=== PATIENT | female | born 1945 | race Caucasian/White ===

== ENCOUNTER 2017-08-03 10:26 | Day surgery (SDC) | payer MEDICARE, SELFPAY ==
[2017-08-03 10:48] VITALS: BP 191/80; PULSE 104; RESP 20; TEMP 36.6; O2SAT 99; BMI 31.2
[2017-08-03 10:56] LABS: Bedside Glucose 167 mg/dL (70-110)
[2017-08-03] MEDS: Tetracaine 0.5% Ophthalmic Bottle 1 DRP OP (11:55)
[2017-08-03 12:25] VITALS: BP 150/66; BP 191/80; PULSE 91; RESP 16; TEMP 36.9; O2SAT 100
--- NOTE | 2017-08-03 12:26 | DCINST_ITS ---
Allergies/Adverse Reactions: Allergies adhesive tape Allergy (Verified 07/31/17 11:08) Rash enalaprilat [From Vasotec] Allergy (Verified 07/31/17 11:08) Anaphylaxis Medications to take at Discharge Hydrochlorothiazide [Hctz] 25 mg PO DAILY 07/31/17 Metformin HCl 1,000 mg PO BID 07/31/17 Cataract Instructions: -Take a pain reliever such as Tylenol, Aspirin or Ibuprofen if needed for eye aching or pain. If this is not enough relief for you pain, call your doctor (or the doctor regional refrigerated cdl truck driver), even at night. -You are scheduled for a follow-up appointment at [facility] the day after surgery. You should have someone drive you. -Transient pain and irritation are due to the incision that was made at the time of surgery and do not indicate any trouble. Our office numbers are . If there is no answer, or if it is after our normal business hours, call your surgeon. My home phone number is: Dr. Radha Varghese INSTRUCTIONS FOLLOWING TOPICAL ANESTHETIC CATARACT SURGERY Protect operated eye with glasses or metal shield at all times. Instill one drop of Polytrim (or other antibiotic drop), one drop of Prednisolone and one drop of Acular in the operated eye four times a day ( breakfast, lunch, dinner, and bedtime) until the doctor tells you to quit or decrease them. Wait 3-5 minutes between each drop. Please begin these immediately upon arriving at home. if your surgery is in t he afternoon, try to use the drops at least three more times the day of surgery and again the following morning before your appointment. INSTRUCTIONS FOLLOWING RETROBULBAR CATARACT SURGERY Keep the eye patch and metal shield on until you see your surgeon the day after surgery - these will be removed in the office that day. Do not drive while the patch is on your eye. You will be instructed about the use of drops for the operated eye at that visit. Primary Care Physician: Flakito Lucia MD [Primary Care Provider] -
--- NOTE | 2017-08-03 12:27 | PCM.OP.BLANK ---
Operative Report Date of Procedure: 08/03/17 Preoperative Diagnosis: Cataract Left Eye Postoperative Diagnosis: Same Procedure: Cataract Extraction via phacoemulsification with intraocular lens implant Left Eye Anesthesia: Mac/topical Complications: none Estimated Blood Loss: none Indications for procedure: This is a 72 year old female with history of worsening vision in the left eye secondary to cataract. After discussion of the risks, benefits, and alternatives procedure the patient agreed to proceed with cataract extraction of the left eye. Description of procedure: The patient was brought to the operative room where a time out was performed prior to the start of the procedure. Anesthesia team induced light sedation, and the eye was prepped and draped in the normal sterile fashion for eye surgery. A david blade knife was used to create a paracentesis incision. Preservative free lidocaine followed by viscoelastic was introduced into the anterior chamber. A keratome was used to create a clear corneal biplanar incision at the temporal limbus. A cystotome was used to begin the capsulorhexis, which was completed in a continuous curvilinear fashion using the capsulorhexis forceps. BSS on a eagle cannula was used to hydrate beneath the lens capsule until the lens was noted to be freely mobile in the capsular bag. Phacoemulsification was used to remove the lens in a divide and conquer technique. Irrigation and aspiration was used to remove the remaining cortical material. The capsular bag was inflated with provisc, and a tecnis PCBOO 22.0 diopter lens was placed in the capsular bag and adjusted using a nikkie hook. The remaining viscoelastic material was removed. The wounds were hydrated and noted to be watertight with the use of a wexcell sponge. The patient was taken to the recovery room in a stable condition with instructions to follow up in the clinic for the scheduled postoperative visit.
[2017-08-03 12:30] VITALS: BP 147/78; BP 191/80; PULSE 89; RESP 16; O2SAT 94
[2017-08-03 12:35] VITALS: BP 168/65; BP 191/80; PULSE 83; RESP 16; O2SAT 97
[2017-08-03 12:40] VITALS: BP 156/81; BP 191/80; PULSE 84; RESP 16; TEMP 36.8; O2SAT 94
[2017-08-03 13:00] VITALS: BP 191/80
== END 2017-08-03 13:14 | disposition home or self-care (01) ==
LOC: SDC 10:40 → AC 10:40
PROVIDERS: Family Provider Family Medicine; PCP Family Medicine; Visit Provider Ophthalmology
PROC: (CPT 66984; principal; 2017-08-03 11:45)
DX: H25.813 Combined forms of age-related cataract, bilateral (principal); E11.3293 Type 2 diabetes mellitus with mild nonproliferative diabetic retinopathy without macular edema, bilateral; I10 Essential (primary) hypertension; F41.9 Anxiety disorder, unspecified; E06.9 Thyroiditis, unspecified; Z86.2 Personal history of diseases of the blood and blood-forming organs and certain disorders involving the immune mechanism; Z87.891 Personal history of nicotine dependence; Z79.84 Long term (current) use of oral hypoglycemic drugs; Z79.899 Other long term (current) drug therapy
CPT/HCPCS: 66984; 82962

== ENCOUNTER 2017-08-31 11:00 | Day surgery (SDC) | payer MEDICARE, SELFPAY ==
[2017-08-31] VITALS (7 sets, daily range): BP systolic 143–171; BP diastolic 66–88; PULSE 83–90; RESP 16–18; TEMP 36.5–36.9; O2SAT 94–100; BMI 31.5
[2017-08-31 12:01] LABS: Bedside Glucose 164 mg/dL (70-110)
[2017-08-31] MEDS: Tetracaine 0.5% Ophthalmic Bottle 1 DRP (12:44)
--- NOTE | 2017-08-31 13:05 | PCM.DC.CATCL ---
Allergies/Adverse Reactions: Allergies adhesive tape Allergy (Verified 08/30/17 15:20) Rash enalaprilat [From Vasotec] Allergy (Verified 08/30/17 15:20) Anaphylaxis Medications to take at Discharge Hydrochlorothiazide [Hctz] 25 mg PO DAILY 07/31/17 Metformin HCl 1,000 mg PO BID 07/31/17 Cataract Instructions: -Take a pain reliever such as Tylenol, Aspirin or Ibuprofen if needed for eye aching or pain. If this is not enough relief for you pain, call your doctor (or the doctor internal combustion engine inspector), even at night. -You are scheduled for a follow-up appointment at [facility] the day after surgery. You should have someone drive you. -Transient pain and irritation are due to the incision that was made at the time of surgery and do not indicate any trouble. Our office numbers are . If there is no answer, or if it is after our normal business hours, call your surgeon. My home phone number is: Dr. Radha Varghese INSTRUCTIONS FOLLOWING TOPICAL ANESTHETIC CATARACT SURGERY Protect operated eye with glasses or metal shield at all times. Instill one drop of Polytrim (or other antibiotic drop), one drop of Prednisolone and one drop of Acular in the operated eye four times a day (breakfast, lunch, dinner, and bedtime) until the doctor tells you to quit or decrease them. Wait 3-5 minutes between each drop. Please begin these immediately upon arriving at home. if your surgery is in t he afternoon, try to use the drops at least three more times the day of surgery and again the following morning before your appointment. INSTRUCTIONS FOLLOWING RETROBULBAR CATARACT SURGERY Keep the eye patch and metal shield on until you see your surgeon the day after surgery - these will be removed in the office that day. Do not drive while the patch is on your eye. You will be instructed about the use of drops for the operated eye at that visit. Primary Care Physician: Flakito Lucia MD [Primary Care Provider] -
--- NOTE | 2017-08-31 13:05 | PCM.OP.BLANK ---
Operative Report Date of Procedure: 08/31/17 Preoperative Diagnosis: Cataract Right Eye Postoperative Diagnosis: Same Procedure: Cataract Extraction via phacoemulsification with intraocular lens implant Right Eye Anesthesia: Mac/topical Complications: none Estimated Blood Loss: none Indications for procedure: This is a 72 year old female with history of worsening vision in the right eye secondary to cataract. After discussion of the risks, benefits, and alternatives procedure the patient agreed to proceed with cataract extraction of the right eye. Description of procedure: The patient was brought to the operative room where a time out was performed prior to the start of the procedure. Anesthesia team induced light sedation, and the eye was prepped and draped in the normal sterile fashion for eye surgery. A david blade knife was used to create a paracentesis incision. Preservative free lidocaine followed by viscoelastic was introduced into the anterior chamber. A keratome was used to create a clear corneal biplanar incision at the temporal limbus. A cystotome was used to begin the capsulorhexis, which was completed in a continuous curvilinear fashion using the capsulorhexis forceps. BSS on a eagle cannula was used to hydrate beneath the lens capsule until the lens was noted to be freely mobile in the capsular bag. Phacoemulsification was used to remove the lens in a divide and conquer technique. Irrigation and aspiration was used to remove the remaining cortical material. The capsular bag was inflated with provisc, and a tecnis PCBOO 22.0 diopter lens was placed in the capsular bag and adjusted using a nikkie hook. The remaining viscoelastic material was removed. The wounds were hydrated and noted to be watertight with the use of a wexcell sponge. The patient was taken to the recovery room in a stable condition with instructions to follow up in the clinic for the scheduled postoperative visit.
== END 2017-08-31 13:47 | disposition home or self-care (01) ==
LOC: SDC 11:06 → AC 11:07
PROVIDERS: Family Provider Family Medicine; PCP Family Medicine; Visit Provider Ophthalmology
PROC: (CPT 66984; principal; 2017-08-31 12:20)
DX: H25.811 Combined forms of age-related cataract, right eye (principal); I10 Essential (primary) hypertension; E11.9 Type 2 diabetes mellitus without complications; F41.9 Anxiety disorder, unspecified; Z98.42 Cataract extraction status, left eye; Z87.891 Personal history of nicotine dependence; Z79.84 Long term (current) use of oral hypoglycemic drugs; Z79.899 Other long term (current) drug therapy
CPT/HCPCS: 66984; 82962

== ENCOUNTER → 2018-06-06 | Outpatient (CLI) | payer MEDICARE, SELFPAY ==
[2018-06-06 17:21] LABS: Absolute Lymphocyte Count 3.83 X10^3/ul (0.83-4.51); Absolute Neutrophil Count 4.2 X10^3/uL (2.0-7.7); Basophil# 0.01 X10^3/uL; Basophil% 0.1 % (0-1); Eosinophil# 0.08 X10^3/uL; Eosinophils% 0.9 % (0-5); Hematocrit 41.5 % (37-47); Hemoglobin 14.2 g/dl (12.0-15.0); Lymphocyte # 3.83 X10^3/ul (4.0); Lymphocyte % 44.1 % (19-41); Mean Corp Hgb Conc 34.2 g/gl (32-36); Mean Corpuscular Hgb 31.1 pg (27.0-32.0); Mean Corpuscular Volume 90.8 fL (81-99); Mean Platelet Vol. 11.6 fl (6.2-12.0); Monocyte# 0.61 X10^3/uL; Neutrophil # 4.15 X10^3/uL (2.7-7.7); Neutrophil % 47.8 % (47-70); Platelet Count 352 K/mm3 (150-450); RBC Distribution Width SD 42.8 fl (35.1-43.9); Red Blood Count 4.57 M/mm3 (4.2-5.4); White Blood Count 8.7 K/mm3 (4.4-11.0)
[2018-06-06 17:22] LABS: POSITIVE COUNT NO; POSITIVE DIFFERENTIAL NO; POSITIVE MORPHOLOGY NO
[2018-06-06 17:48] LABS: ALB/GLOB Ratio 1.1 RATIO (0.9-2.4); AST(SGOT) 20 U/L (15-37); Alanine Aminotransfer ALT/SGPT 37 U/L (13-56); Albumin, Serum 4.2 g/dL (3.2-5.0); Alkaline Phosphatase 54 U/L (45-117); Anion Gap 5 (5-15); BUN 15 mg/dL (7-18); BUN/Creat Ratio 29.1 RATIO (10-20); Calcium,Total 9.4 mg/dL (8.5-10.1); Chloride 101 mmol/L (98-107); Creatinine, Serum 0.52 mg/dL (0.55-1.02); EST Glomerular Filtration Rate 125 mL/min (>60); Est Glom Filt Rate - Afr Amer 151 mL/min (>60); Globulin 3.9 g/dL (2.2-4.2); Glucose 133 mg/dL (74-106); Potassium 3.8 mmol/L (3.5-5.1); Protein, Total 8.1 g/dL (6.4-8.2); Sodium Level 136 mmol/L (136-145); Thyroid Stim Hormone (TSH) 1.74 uIU/mL (0.358-3.74)
== END | disposition home or self-care (01) ==
LOC: BFHLAB 15:51
PROVIDERS: Family Provider Family Medicine; PCP Family Medicine; Visit Provider Family Medicine
DX: E11.9 Type 2 diabetes mellitus without complications (principal); I10 Essential (primary) hypertension; E78.5 Hyperlipidemia, unspecified
CPT/HCPCS: 36415; 80053; 84443; 85025

== ENCOUNTER → 2022-06-30 | Outpatient (CLI) | payer MEDICARE, SELFPAY ==
[2022-06-30 15:52] LABS: Absolute Lymphocyte Count 2.99 X10^3/uL (0.83-4.51); Absolute Neutrophil Count 4.9 X10^3/uL (2.0-7.7); Basophil# 0.02 X10^3/uL; Basophil% 0.2 % (0-1); Eosinophil# 0.13 X10^3/uL; Eosinophils% 1.5 % (0-5); Hematocrit 40.4 % (37-47); Hemoglobin 13.2 g/dL (12.0-15.0); Lymphocyte # 2.99 X10^3/ul (0.83-4.51); Lymphocyte % 35.1 % (19-41); Mean Corp Hgb Conc 32.7 g/dL (32-36); Mean Corpuscular Hgb 30.8 pg (27.0-32.0); Mean Corpuscular Volume 94.4 fL (81-99); Mean Platelet Vol. 11.9 fl (6.2-12.0); Monocyte# 0.47 X10^3/uL; Monocyte% 5.5 % (0-10); NRBC Flagged by Analyzer 0 % (0-5); Neutrophil # 4.87 X10^3/uL (2.7-7.7); Neutrophil % 57.3 % (47-70); Platelet Count 309 K/mm3 (150-450); RBC Distribution Width CV 13.2 % (11.6-14.6); RBC Distribution Width SD 45.8 fl (35.1-43.9); Red Blood Count 4.28 M/mm3 (4.2-5.4); White Blood Count 8.5 K/mm3 (4.4-11.0)
[2022-06-30 16:26] LABS: ALB/GLOB Ratio 0.9 RATIO (0.9-2.4); AST(SGOT) 41 U/L (15-37); Alanine Aminotransfer ALT/SGPT 54 U/L (13-56); Albumin, Serum 3.8 g/dL (3.2-5.0); Alkaline Phosphatase 53 U/L (45-117); Anion Gap 9 (5-15); BUN 20 mg/dL (7-18); BUN/Creat Ratio 30.4 RATIO (10-20); Calcium,Total 9.8 mg/dL (8.5-10.1); Chloride 103 mmol/L (98-107); Cholesterol 208 mg/dL (200); Creatinine, Serum 0.66 mg/dL (0.55-1.02); EST Glomerular Filtration Rate 93 mL/min (>60); Est Glom Filt Rate - Afr Amer 112 mL/min (>60); Globulin 4.4 g/dL (2.2-4.2); Glucose 167 mg/dL (74-106); High Density Lipoprotein 70 mg/dL; Protein, Total 8.2 g/dL (6.4-8.2); Sodium Level 137 mmol/L (136-145); Triglycerides 147 mg/dL; Very Low Density Lipoprotein 29 mg/dL (5-40)
[2022-06-30 16:37] LABS: Microalbumin,Random Urine 92.9 mg/L (NO RANGE EST.); Microalbumin:Creatinine Ratio 346.6 mg/g CRE (<30 mg/g CRE)
== END | disposition home or self-care (01) ==
LOC: BFHLAB 13:29
PROVIDERS: PCP Family Medicine; Referring Provider Family Medicine; Visit Provider Family Medicine
DX: Z00.00 Encounter for general adult medical examination without abnormal findings (principal); E11.9 Type 2 diabetes mellitus without complications; I10 Essential (primary) hypertension
CPT/HCPCS: 36415; 80053; 80061; 82043; 82570; 85025

== ENCOUNTER 2023-01-29 00:05 | Emergency (ER) | payer MEDICARE, SELFPAY ==
[2023-01-29 00:09] VITALS: BP 136/81; PULSE 114; RESP 17; TEMP 36.3; O2SAT 97; BMI 38.0
[2023-01-29 00:12] VITALS: BMI 38.0
--- NOTE | 2023-01-29 00:45 | EX.ED.DYSGE1 ---
HPI History of Present Illness Chief Complaint: Neuro S/Sx Informant: patient Narrative Narrative: 77-year-old female presenting to the emergency room with headache. Patient states that she has a lot of small things that normally I would not come in for but as I get older I figured I should be checked out. She states that 3 to 4 days ago she got a bad headache on her right parietal region. She also developed squiggly shapes in her left eye. She states that the headache has improved and now is more of a dull ache but the shapes continued. She went to drove herself here but her grandson had the car so he drove her. She states that earlier tonight she noticed that her blood pressure was going up. Her cheeks felt flushed. She felt tremulous and she had tingling that turned into numbness back to tingling and then resolution of the left thumb index and middle finger. [facility] Medical History Diabetes type 2, controlled Hypertension Home Medications hydrochlorothiazide 25 mg tablet 25 mg PO DAILY 07/31/17 [History Last Taken Unknown] metformin 1,000 mg tablet 1,000 mg PO BID 07/31/17 [History Last Taken Unknown] Allergy/AdvReac Type Severity Reaction Status Date / Time povidone-iodine Allergy Mild Swelling Verified 01/29/23 00:15 [From Betadine] adhesive tape Allergy Rash Verified 01/29/23 00:14 enalaprilat [From Vasotec] Allergy Anaphylaxis Verified 01/29/23 00:14 Social History Smoking Status: Former smoker ROS ROS ED Constitutional Constitutional ED: Denies chills, fever(s) or weight loss Eyes Eyes: Reports other Details: Visual disturbance left eye ; Denies change in vision or diplopia ENT ENT ED: Reports other Details: Flushed cheeks ; Denies ear pain, rhinorrhea or sore throat Cardiovascular Cardiovascular: Denies chest pain, orthopnea, palpitations or racing heartbeat Respiratory/Chest Respiratory/Chest: Denies cough, dyspnea or orthopnea Gastrointestinal Gastrointestinal: Denies abdominal pain, diarrhea, nausea or vomiting Genitourinary Genitourinary ED: Denies dysuria, hematuria or urinary frequency Musculoskeletal Musculoskeletal: Denies arthralgias or myalgias Integumentary Denies abscess or rash Neurologic Neurologic: Reports headache(s) and paresthesias; Denies weakness Psychiatric Psychiatric: Denies anxiety, depression, suicidal ideation or suicidal thoughts Endocrine Endocrinology: Denies polydipsia, polyphagia or polyuria Allergic/Immunologic Allergic/Immunologic ED: Denies mouth swelling, tongue swelling or urticaria EXAM Physical Exam Const Vital Signs: 01/29/23 00:09 01/29/23 02:53 Temperature 97.4 F L Temperature Source Temporal Pulse Rate 114 H 99 Respiratory Rate 17 12 Blood Pressure 136/81 H 131/96 H Blood Pressure Mean 99 107 Pulse Ox 97 95 Oxygen Delivery Method Room Air Positive well nourished and well developed General Appearance ED: well developed HEENT Reports normocephalic, head/scalp atraumatic and moist mucous membranes HEENT Narrative: Small subconjunctival hemorrhage bilateral eyes which the patient states is from my injections Eyes PERRL and EOMs intact bilaterally Neck no lymphadenopathy, supple and no JVD Resp normal respiratory effort and clear to auscultation bilaterally Cardio regular rate, regular rhythm and no murmurs GI normal to inspection, nondistended, normoactive bowel sounds and non-tender Palpation: soft Back/Spine no CVA tenderness and normal ROM Extremity normal to inspection General Extremety ED: Negative for edema General Extremity: Negative for edema Neuro oriented x3 and CN's II-XII intact bilaterally Sensorium / Orientation: alert Motor Exam: strength 5/5 throughout Psych mental status grossly normal Mood & Affect: anxious; Negative for depressed or tearful Skin no rashes or lesions noted and no wounds MDM MDM MDM Narrative Medical decision making narrative: I think that the headache and the visual disturbance is most likely migrainous. Recommended to give her a dose of Toradol and Decadron. Flushing of the cheeks the tremor elevated blood pressure most likely related to anxiety. The paresthesias in the first 3 fingers of the left hand sounds peripheral nerve in nature. CT of the brain demonstrates no hemorrhage or subacute infarct. White count 12.4 hemoglobin 12.2. Blood sugar 142. No sodium or potassium irregularity. Patient feels greatly relieved with her testing. Her EKG is a sinus tachycardia at a rate of 101. I believe the tachycardia to be anxiety driven. This point think the patient can be discharged home to follow-up with her doctors if not improving. Particularly the visual disturbance if she needs to see her eye doctor for continued symptoms would recommend that on Monday or Monday. History & Record Review Discussion w/independent historian: Patient Lab Data Attestation: I reviewed the patient's lab results. Labs: Laboratory Results - last 24 hr 01/29/23 01/29/23 00:19 00:27 WBC 12.4 H RBC 4.05 L Hgb 12.2 Hct 38.2 MCV 94.3 MCH 30.1 MCHC 31.9 L RDW Std Deviation 45.0 H RDW Coeff of Dottie 13.0 Plt Count 336 MPV 11.9 Immature Gran % (Auto) 0.300 Neut % (Auto) 66.2 Lymph % (Auto) 24.5 Wayne % (Auto) 7.7 Eos % (Auto) 0.9 Baso % (Auto) 0.4 Absolute Neuts (auto) 8.2 H Absolute Lymphs (auto) 3.04 Nucleated RBC % 0 Sodium 136 Potassium 4.3 Chloride 101 Carbon Dioxide 28.0 Anion Gap 7 BUN 38 H Creatinine 1.14 H Estim Creat Clear Calc 31.68 Est GFR (MDRD) Af Amer 60 Est GFR (MDRD) Non-Af 49 L BUN/Creatinine Ratio 33.3 H Glucose 142 H Calcium 9.7 POC Glucose 122 H Radiography Diagnostic Testing: Clinical Impression(s) from Imaging Studies Brain CT 01/29/23 00:49 IMPRESSION: Mild atrophy no visualized acute hemorrhage infarct or edema. Electronically Signed: Lisseth Laboy MD at 2:08 EST Reading Location ID and State: [facility] / [place] Tel , Service support , EKG Initial EKG: Attestation: I personally reviewed and interpreted this EKG as follows: Comments: Sinus tachycardia ventricular rate of 101. Discharge Plan Triage Chief Complaint: Neuro S/Sx ED Provider: Ac Esquivel Dx/Rx/DC Orders Clinical Impression: Paresthesia of hand, Migraine aura, persistent Instructions: ED, Migraine (Classical) Prescriptions: No Action metformin 1,000 MG tablet 1,000 mg PO BID hydrochlorothiazide 25 MG tablet 25 mg PO DAILY Primary Care Provider: Bing Pryor Referrals: Bing Pryor MD [Primary Care Provider] - Activity Restrictions/Additional Instructions: If visual disturbances persist please see your eye doctor early next week. As discussed you may notice an increase in your blood sugar over the next couple days due to the Decadron (steroid). You may continue to treat any residual headache with Motrin. Disposition Disposition: Home, Self Care Discharge Date/Time: 01/29/23 02:54
[2023-01-29 00:48] LABS: Bedside Glucose 122 mg/dL (74-106)
--- NOTE | 2023-01-29 00:49 | CT_ITS ---
STUDY: CT BRAIN WITHOUT CONTRAST REASON FOR EXAM: Female, 77 years old. Headache RADIATION DOSAGE (If Supplied By Facility): CTDIvol = ( 44.99 ) mGy, DLP = ( 779.24 ) mGycm TECHNIQUE: Transaxial CT imaging of the brain was performed without administration of intravenous contrast material. Individualized dose optimization techniques were used for this CT. COMPARISON: October 29, 2016 chest x-ray FINDINGS: Normal soft tissue structures. Normal calvarium. There is visualized calcification of the bilateral vertebral arteries. There is calcification of the bilateral cavernous carotid arteries. There is mild cerebral atrophy with widening of the extra-axial spaces and ventricular dilatation. Normal white matter tracts of the cerebral hemispheres. Normal basal ganglia and thalami. Normal brainstem. Normal cerebellum. There is no intracranial hemorrhage. There are no findings of an acute ischemic infarction. Normal visualized paranasal sinuses. CT/Brain/Head without Contrast IMPRESSION: Mild atrophy no visualized acute hemorrhage infarct or edema. Electronically Signed: Lisseth Laboy MD at 2:08 EST Reading Location ID and State: [facility] / [place] Tel , Service support ,
--- NOTE | 2023-01-29 00:49 | EKG12_ITS ---
Test Reason : DYSRHYTHMIA Blood Pressure : / mmHG Vent. Rate : 101 BPM Atrial Rate : 101 BPM P-R Int : 132 ms QRS Dur : 080 ms QT Int : 332 ms P-R-T Axes : 037 021 052 degrees QTc Int : 430 ms Sinus tachycardia Otherwise normal ECG Confirmed by SARAHI CHAMBERS, ABEL ([id number]), general expeditor GENNA UA ([id number]) on 01/30/2023 1:25:50 PM Referred By: Confirmed By:ABEL MCCLAIN MD
[2023-01-29 01:25] LABS: Absolute Lymphocyte Count 3.04 X10^3/uL (0.83-4.51); Absolute Neutrophil Count 8.2 X10^3/uL (2.0-7.7); Basophil# 0.05 X10^3/uL; Basophil% 0.4 % (0-1); Eosinophil# 0.11 X10^3/uL; Eosinophils% 0.9 % (0-5); Hematocrit 38.2 % (37-47); Hemoglobin 12.2 g/dL (12.0-15.0); Lymphocyte # 3.04 X10^3/ul (0.83-4.51); Lymphocyte % 24.5 % (19-41); Mean Corp Hgb Conc 31.9 g/dL (32-36); Mean Corpuscular Hgb 30.1 pg (27.0-32.0); Mean Corpuscular Volume 94.3 fL (81-99); Mean Platelet Vol. 11.9 fl (6.2-12.0); Monocyte# 0.95 X10^3/uL; Monocyte% 7.7 % (0-10); NRBC Flagged by Analyzer 0 % (0-5); Neutrophil # 8.22 X10^3/uL (2.7-7.7); Neutrophil % 66.2 % (47-70); Platelet Count 336 K/mm3 (150-450); Red Blood Count 4.05 M/mm3 (4.2-5.4); White Blood Count 12.4 K/mm3 (4.4-11.0)
[2023-01-29 01:36] LABS: Anion Gap 7 (5-15); BUN 38 mg/dL (7-18); BUN/Creat Ratio 33.3 RATIO (10-20); Calcium,Total 9.7 mg/dL (8.5-10.1); Chloride 101 mmol/L (98-107); Creatinine, Serum 1.14 mg/dL (0.55-1.02); EST Glomerular Filtration Rate 49 mL/min (>60); Est Glom Filt Rate - Afr Amer 60 mL/min (>60); Estimated Creatinine Clearance 31.68 ml/min; Glucose 142 mg/dL (74-106); Potassium 4.3 mmol/L (3.5-5.1); Sodium Level 136 mmol/L (136-145)
[2023-01-29] MEDS: Ketorolac 30 MG/ML Syringe IV (02:44)
[2023-01-29] MEDS: dexAMETHasone 10 MG/ML Vial IV (02:44)
[2023-01-29 02:53] VITALS: BP 131/96; PULSE 99; RESP 12; O2SAT 95
== END 2023-01-29 02:54 | disposition home or self-care (01) ==
PROVIDERS: Emergency Provider Emergency Medicine; PCP Family Medicine; Visit Provider Emergency Medicine
DX: R20.2 Paresthesia of skin (principal); E11.9 Type 2 diabetes mellitus without complications; G43.509 Persistent migraine aura without cerebral infarction, not intractable, without status migrainosus; Z87.891 Personal history of nicotine dependence
CPT/HCPCS: 70450; 80048; 82962; 85025; 93005; 96374; 96375; 99284; A4216

== ENCOUNTER → 2024-01-05 | Outpatient (CLI) | payer MEDICARE, SELFPAY ==
[2024-01-05 17:28] LABS: Absolute Neutrophil Count 4.5 X10^3/uL (2.0-7.7); Basophil# 0.02 X10^3/uL; Basophil% 0.3 % (0-1); Eosinophil# 0.17 X10^3/uL; Eosinophils% 2.2 % (0-5); Hematocrit 37.7 % (37-47); Hemoglobin 12.1 g/dL (12.0-15.0); Lymphocyte % 33.2 % (19-41); Mean Corp Hgb Conc 32.1 g/dL (32-36); Mean Corpuscular Hgb 30.3 pg (27.0-32.0); Mean Corpuscular Volume 94.5 fL (81-99); Monocyte# 0.55 X10^3/uL; NRBC Flagged by Analyzer 0 % (0-5); Neutrophil # 4.48 X10^3/uL (2.7-7.7); Platelet Count 297 K/mm3 (150-450); RBC Distribution Width CV 13.2 % (11.6-14.6); RBC Distribution Width SD 45.9 fl (35.1-43.9); Red Blood Count 3.99 M/mm3 (4.2-5.4); White Blood Count 7.8 K/mm3 (4.4-11.0)
[2024-01-05 17:48] LABS: ALB/GLOB Ratio 0.9 RATIO (0.9-2.4); AST(SGOT) 33 U/L (15-37); Alanine Aminotransfer ALT/SGPT 48 U/L (13-56); Albumin, Serum 3.7 g/dL (3.2-5.0); Alkaline Phosphatase 48 U/L (45-117); Anion Gap 7 (5-15); BUN 16 mg/dL (7-18); BUN/Creat Ratio 21.3 RATIO (10-20); Calcium,Total 9.7 mg/dL (8.5-10.1); Chloride 103 mmol/L (98-107); Cholesterol 197 mg/dL (200); Creatinine, Serum 0.75 mg/dL (0.55-1.02); EST Glomerular Filtration Rate 79 mL/min (>60); Est Glom Filt Rate - Afr Amer 96 mL/min (>60); Globulin 4.3 g/dL (2.2-4.2); Glucose 187 mg/dL (74-106); High Density Lipoprotein 75 mg/dL; Microalbumin:Creatinine Ratio 722.2 mg/g CRE (<30 mg/g CRE); Potassium 4.4 mmol/L (3.5-5.1); Sodium Level 136 mmol/L (136-145); Triglycerides 109 mg/dL; Very Low Density Lipoprotein 22 mg/dL (5-40)
== END | disposition home or self-care (01) ==
LOC: BFHLAB 14:25
PROVIDERS: PCP Family Medicine; Referring Provider Family Medicine; Visit Provider Family Medicine
DX: E11.9 Type 2 diabetes mellitus without complications (principal)
CPT/HCPCS: 36415; 80053; 80061; 82043; 82570; 85025

== ENCOUNTER → 2025-01-07 | Outpatient (CLI) | payer MEDICARE, SELFPAY ==
[2025-01-07 15:25] LABS: Hematocrit 43.8 % (37-47); Hemoglobin 14.2 g/dL (12.0-15.0); Immature Granulocytes Count 0.020 X10^3/uL (0.0-0.0); Mean Corp Hgb Conc 32.4 g/dL (32-36); Mean Corpuscular Volume 93.2 fL (81-99); Mean Platelet Vol. 11.8 fl (6.2-12.0); NRBC Flagged by Analyzer 0 % (0-5); Platelet Count 299 K/mm3 (150-450); RBC Distribution Width CV 13.2 % (11.6-14.6); RBC Distribution Width SD 45.7 fl (35.1-43.9); Red Blood Count 4.70 M/mm3 (4.2-5.4); White Blood Count 7.5 K/mm3 (4.4-11.0)
[2025-01-07 15:47] LABS: AST(SGOT) 31 U/L (<=31); Alanine Aminotransfer ALT/SGPT 27 U/L (<=34); Albumin, Serum 4.1 g/dL (3.4-4.8); Alkaline Phosphatase 57 U/L (35-104); Anion Gap 13 (5-15); BUN 22 mg/dL (4-19); BUN/Creat Ratio 31.6 RATIO (10-20); Calcium,Total 10.1 mg/dL (7.6-11.0); Carbon Dioxide 26.0 mmol/L (21.0-32.0); Chloride 100 mmol/L (98-108); Cholesterol 241 mg/dL (<=200); Globulin 3.7 g/dL (2.2-4.2); Glucose 132 mg/dL (70-99); Low Density Lipoprotein Calc. 143 mg/dL; Potassium 4.2 mmol/L (3.3-5.1); Triglycerides 141 mg/dL; Very Low Density Lipoprotein 28 mg/dL (5-40); cholesterol:hdl ratio screen 3.30
--- OUTSIDE RECORDS SUMMARY | 2025-01-07 16:56 | XMS RPT_ITS | CCD ---
Author Organization [facility] ion Partnership [facility] Care Team Providers Care Field Liability Generalist Name Role Phone Bing Pryor Referring Unavailable Bing Pryor Attending Unavailable Bing Pryor Primary Care Unavailable Allergies Allergy Classification Reported Allergen(s) Allergy Type Date of Onset Reaction(s) Facility (2 sources) Adhesive Tape; Translations: [adhesive tape] Allergy to substance 01-29-2023 Rash [facility] (1 source) Enalaprilat Drug Allergy 01-29-2023 Anaphylaxis [facility] (1 source) Povidone-Iodine Drug Allergy 01-29-2023 Swelling [facility] (1 source) Enalaprilat Drug Allergy 01-29-2023 [facility] Repository (1 source) Povidone-Iodine Drug Allergy 01-29-2023 [facility] Repository Medications Current Medications Medication Drug Class(es) Dates Sig (Normalized) Sig (Original) hydroCHLOROthiazide 25 mg oral tablet (1 source) Thiazide Diuretic Start: 8 take 25 mg by mouth once daily Hydrochlorothiazide Active 25 MG PO DAILY July 30, 2017 11:00pm metFORMIN hydrochloride 1000 mg oral tablet (1 source) Biguanide Start: 8 take 1000 mg by mouth twice daily Metformin Active 1000 MG PO TWICE A DAY July 30, 2017 11:00pm Problems Active Problems Problem Classification Problem Date Documented Da te Episodic/Chronic Diabetes mellitus without complication (1 source) Type 2 diabetes mellitus without complications; Translations: [Type 2 diabetes mellitus without complications] Onset: 02-01-2024 Chronic Headache; including migraine (1 source) Migraine with persistent visual aura; Translations: [Persistent migraine aura without cerebral infarction, not intractable, without status migrainosus] 01-29-2023 Chronic Past or Other Problems Problem Classification Problem Date Documented Da te Episodic/Chronic Other nervous system disorders (1 source) Paresthesia of hand ; Translations: [Paresthesia of skin] 01-29-2023 Episodic Results Test Name Value Interpretation Reference Range Facility CBC W/Diff, Automatedon 12-15 Absolute Lymph 2.60 X10 3/uL Normal 0.83-4.51 [facility] Comment on above: Performed By: #### L 100.0100, L500.4100, L500.4050, L502.0250 #### [facility] [address] [place], [address] Absolute Neut 4.5 X10 3/uL Normal 2.0-7.7 [facility] Comment on above: Performed By: #### L 100.0100, L500.4100, L500.4050, L502.0250 #### [facility] [address] [place], [address] Basophils/100 WBC (Bld) 0.3 % Normal 0-1 [facility] Comment on above: Performed By: #### L 100.0100, L500.4100, L500.4050, L502.0250 #### [facility] [address] [place], [address] Eosinophils/100 WBC (Bld) 2.2 % Normal 0-5 [facility] Comment on above: Performed By: #### L 100.0100, L500.4100, L500.4050, L502.0250 #### [facility] [address] [place], [address] Erythrocyte distribution width (RBC) [Ratio] 13.2 % Normal 11.6-14.6 [facility] Comment on above: Performed By: #### L 100.0100, L500.4100, L500.4050, L502.0250 #### [facility] [address] [place], [address] Hematocrit (Bld) [Volume fraction] 37.7 % Normal 37-47 [facility] Comment on above: Performed By: #### L 100.0100, L500.4100, L500.4050, L502.0250 #### [facility] [address] [place], [address] Hemoglobin (Bld) [Mass/Vol] 12.1 g/dL Normal 12.0-15.0 [facility] Comment on above: Performed By: #### L 100.0100, L500.4100, L500.4050, L502.0250 #### [facility] [address] [place], [address] IG% 0.300 Normal 0.0-0.9 [facility] Comment on above: Result Comment: IG% - Immature Granulocytes (promyelocytes, myelocytes and metamyelocytes) > 1% indicates that a LEFT SHIFT is Present. Performed By: #### L 100.0100, L500.4100, L500.4050, L502.0250 #### [facility] [address] [place], [address] Lymphocytes/100 WBC (Bld) 33.2 % Normal 19-41 [facility] Comment on above: Performed By: #### L 100.0100, L500.4100, L500.4050, L502.0250 #### [facility] [address] [place], [address] MCH (RBC) [Entitic mass] 30.3 pg Normal 27.0-32.0 [facility] Comment on above: Performed By: #### L 100.0100, L500.4100, L500.4050, L502.0250 #### [facility] [address] [place], [address] MCHC (RBC) [Mass/Vol] 32.1 g/dL Normal 32-36 [facility] Comment on above: Performed By: #### L 100.0100, L500.4100, L500.4050, L502.0250 #### [facility] [address] [place], [address] MCV (RBC) [Entitic vol] 94.5 fL Normal 81-99 [facility] Comment on above: Performed By: #### L 100.0100, L500.4100, L500.4050, L502.0250 #### [facility] [address] [place], [address] Monocytes/100 WBC (Bld) 7.0 % Normal 0-10 [facility] Comment on above: Performed By: #### L 100.0100, L500.4100, L500.4050, L502.0250 #### [facility] [address] [place], [address] Neutrophils/100 WBC (Bld) 57.0 % Normal 47-70 [facility] Comment on above: Performed By: #### L 100.0100, L500.4100, L500.4050, L502.0250 #### [facility] [address] [place], [address] Nucleated RBC (Bld) [#/Vol] 0 10*3/uL Normal 0-5 [facility] Comment on above: Performed By: #### L 100.0100, L500.4100, L500.4050, L502.0250 #### [facility] [address] [place], [address] Platelet mean volume (Bld) [Entitic vol] 12.0 fL Normal 6.2-12.0 [facility] Comment on above: Performed By: #### L 100.0100, L500.4100, L500.4050, L502.0250 #### [facility] [address] [place], [address] Platelets (Bld) [#/Vol] 297 10*3/uL Normal 150-450 [facility] Comment on above: Performed By: #### L 100.0100, L500.4100, L500.4050, L502.0250 #### [facility] [address] [place], [address] RBC (Bld) [#/Vol] 3.99 10*6/uL Low 4.2-5.4 [facility] Comment on above: Performed By: #### L 100.0100, L500.4100, L500.4050, L502.0250 #### [facility] [address] [place], [address] RDW SD 45.9 fl High 35.1-43.9 [facility] Comment on above: Performed By: #### L 100.0100, L500.4100, L500.4050, L502.0250 #### [facility] [address] [place], [address] WBC (Bld) [#/Vol] 7.8 10*3/uL Normal 4.4-11.0 [facility] Comment on above: Performed By: #### L 100.0100, L500.4100, L500.4050, L502.0250 #### [facility] [address] [place], [address] Comprehensive Metabolic Prof [facility] 01-05-2024 Albumin [Mass/Vol] 3.7 g/dL Normal 3.2-5.0 [facility] Comment on above: Performed By: #### L 100.0100, L500.4100, L500.4050, L502.0250 #### [facility] [address] [place], [address] Albumin/Globulin [Mass ratio] 0.9 {ratio} Normal 0.9-2.4 [facility] Comment on above: Performed By: #### L 100.0100, L500.4100, L500.4050, L502.0250 #### [facility] [address] [place], [address] ALK P 48 U/L Normal 45-117 [facility] Comment on above: Performed By: #### L 100.0100, L500.4100, L500.4050, L502.0250 #### [facility] [address] [place], [address] ALT [Catalytic activity/Vol] 48 U/L Normal 13-56 [facility] Comment on above: Performed By: #### L 100.0100, L500.4100, L500.4050, L502.0250 #### [facility] [address] [place], [address] AST [Catalytic activity/Vol] 33 U/L Normal 15-37 [facility] Comment on above: Performed By: #### L 100.0100, L500.4100, L500.4050, L502.0250 #### [facility] [address] [place], [address] Bilirubin [Mass/Vol] 0.30 mg/dL Normal 0.20-1.00 [facility] Comment on above: Result Comment: For patients on eltrombopag therapy, use of Dimension [place] TBIL is not recommended. Performed By: #### L 100.0100, L500.4100, L500.4050, L502.0250 #### [facility] [address] [place], [address] BUN/CRE 21.3 RATIO High 10-20 [facility] Comment on above: Performed By: #### L 100.0100, L500.4100, L500.4050, L502.0250 #### [facility] [address] [place], [address] CA,Total 9.7 mg/dL Normal 8.5-10.1 [facility] Comment on above: Performed By: #### L 100.0100, L500.4100, L500.4050, L502.0250 #### [facility] [address] [place], [address] Chloride [Moles/Vol] 103 mmol/L Normal 98-107 [facility] Comment on above: Performed By: #### L 100.0100, L500.4100, L500.4050, L502.0250 #### [facility] [address] [place], [address] CO2 [Moles/Vol] 25.0 mmol/L Normal 21.0-32.0 [facility] Comment on above: Performed By: #### L 100.0100, L500.4100, L500.4050, L502.0250 #### [facility] [address] [place], [address] Creatinine [Mass/Vol] 0.75 mg/dL Normal 0.55-1.02 [facility] Comment on above: Result Comment: The validity of the calculated GFR GFRAA in patients over 70 years has not been determined. Clinical correlation is essential. Performed By: #### L 100.0100, L500.4100, L500.4050, L502.0250 #### [facility] [address] [place], [address] EST GFR - AA 96 mL/min Normal >60 [facility] Comment on above: Result Comment: Afri can [place] GFR Calc Performed By: #### L 100.0100, L500.4100, L500.4050, L502.0250 #### [facility] [address] [place], [address] GAP 7 Normal 5-15 [facility] Comment on above: Performed By: #### L 100.0100, L500.4100, L500.4050, L502.0250 #### [facility] [address] [place], [address] GFR/1.73 sq M.predicted among non-blacks MDRD (S/P/Bld) [Vol rate/Area] 79 mL/min/{1.73_m2} Normal >60 [facility] Comment on above: Result Comment: Non- GFR Calc Performed By: #### L 100.0100, L500.4100, L500.4050, L502.0250 #### [facility] [address] [place], [address] Globulin (S) [Mass/Vol] 4.3 g/dL High 2.2-4.2 [facility] Comment on above: Performed By: #### L 100.0100, L500.4100, L500.4050, L502.0250 #### [facility] [address] [place], [address] Glucose [Mass/Vol] 187 mg/dL High 74-106 [facility] Comment on above: Result Comment: Fast ing Glucose result greater than or equal to 126 mg/dL suggests DIABETES MELLITUS per A.D.A. criteria. Performed By: #### L 100.0100, L500.4100, L500.4050, L502.0250 #### [facility] [address] [place], [address] Potassium [Moles/Vol] 4.4 mmol/L Normal 3.5-5.1 [facility] Comment on above: Performed By: #### L 100.0100, L500.4100, L500.4050, L502.0250 #### [facility] [address] [place], [address] Sodium [Moles/Vol] 136 mmol/L Normal 136-145 [facility] Comment on above: Performed By: #### L 100.0100, L500.4100, L500.4050, L502.0250 #### [facility] [address] [place], [address] T PROT 8.0 g/dL Normal 6.4-8.2 [facility] Comment on above: Performed By: #### L 100.0100, L500.4100, L500.4050, L502.0250 #### [facility] [address] [place], [address] Urea nitrogen [Mass/Vol] 16 mg/dL Normal 7-18 [facility] Comment on above: Performed By: #### L 100.0100, L500.4100, L500.4050, L502.0250 #### [facility] [address] [place], [address] Lipid Profileon 01-05-2024 Cholesterol [Mass/Vol] 197 mg/dL Normal 200 [facility] Comment on above: Result Comment: <200 mg/dL Desirable 200-240 mg/dL Borderline >240 mg/dL High Risk Performed By: #### L 100.0100, L500.4100, L500.4050, L502.0250 #### [facility] [address] [place], [address] Cholesterol in HDL [Mass/Vol] 75 mg/dL Normal [facility] Comment on above: Result Comment: The drugs N-Acetylcysteine and Metamizole may falsely depress this assay. Reference Range HDL <40 mg/dL Low HDL Cholesterol HDL >or= 60 mg/dL High HDL Cholesterol Performed By: #### L 100.0100, L500.4100, L500.4050, L502.0250 #### [facility] [address] [place], [address] Cholesterol in LDL [Mass/Vol] 100 mg/dL Normal 0-130 [facility] Comment on above: Performed By: #### L 100.0100, L500.4100, L500.4050, L502.0250 #### [facility] [address] [place], [address] Cholesterol in VLDL [Mass/Vol] 22 mg/dL Normal 5-40 [facility] Comment on above: Performed By: #### L 100.0100, L500.4100, L500.4050, L502.0250 #### [facility] [address] [place], [address] Triglyceride [Mass/Vol] 109 mg/dL Normal [facility] Comment on above: Result Comment: The drugs N-Acetylcysteine and Metamizole may falsely depress this assay. Serum Triglycerides Reference Interval Normal <150 mg/dL Borderline high 150 - 199 mg/dL High 200 - 499 mg/dL Very High > or = 500 mg/dL Performed By: #### L 100.0100, L500.4100, L500.4050, L502.0250 #### [facility] [address] [place], [address] Microalb:Creat Ratio,Random URon 01-05-2024 Creatinine [Mass/Vol] 28.80 mg/dL Normal NO RANGE EST. [facility] Comment on above: Performed By: #### L 100.0100, L500.4100, L500.4050, L502.0250 #### [facility] [address] [place], [address] MALB:CRE 722.2 mg/g CRE High <30 mg/g CRE [facility] Comment on above: Performed By: #### L 100.0100, L500.4100, L500.4050, L502.0250 #### [facility] [address] [place], [address] MICROALBUMIN,UR 208.0 mg/L Normal NO RANGE EST. [facility] Comment on above: Performed By: #### L 100.0100, L500.4100, L500.4050, L502.0250 #### [facility] [address] [place], [address] Absolute lymphocyte countOrd ered By: Ac Esquivel on 01-29-2023 Lymphocytes Auto (Unsp spec) [#/Vol] 3.04 10*3/uL 0.83-4.51 [facility] Basophil percentageOrdered B y: Ac Esquivel on 01-29-2023 Basophils/100 WBC (Bld) 0.4 % 0-1 [facility] Chloride [Moles/Vol] 101 mmol/L 98-107 [facility] Eosinophils/100 WBC (Bld) 0.9 % 0-5 [facility] Glucose [Mass/Vol] 142 mg/dL 74-106 [facility] Comment on above: Fasting Glucose resu lt greater than or equal to 126 mg/dL suggests DIABETES MELLITUS per A.D.A. criteria. Neutrophils (Bld) [#/Vol] 8.2 10*3/uL 2.0-7.7 [facility] Neutrophils/100 WBC (Bld) 66.2 % 47-70 [facility] Potassium [Moles/Vol] 4.3 mmol/L 3.5-5.1 [facility] Sodium [Moles/Vol] 136 mmol/L 136-145 [facility] WBC (Bld) [#/Vol] 12.4 10*3/uL 4.4-11.0 [facility] Blood erythrocytes count (nu mber/volume)Ordered By: Ac Esquivel on 01-29-2023 RBC (Bld) [#/Vol] 4.05 10*6/uL 4.2-5.4 [facility] Blood hemoglobin measurement (mass/volume)Ordered By: Ac Esquivel on 01-29-2023 Hemoglobin (Bld) [Mass/Vol] 12.2 g/dL 12.0-15.0 [facility] Blood lymphocytes/100 leukoc ytesOrdered By: Ac Esquivel on 01-29-2023 Lymphocytes/100 WBC (Bld) 24.5 % 19-41 [facility] Blood monocytes/100 leukocyt esOrdered By: Ac Esquivel on 01-29-2023 Monocytes/100 WBC (Bld) 7.7 % 0-10 [facility] Blood platelet mean volumeOr dered By: Ac Esquivel on 01-29-2023 Platelet mean volume (Bld) [Entitic vol] 11.9 fL 6.2-12.0 [facility] Determination of erythrocyte mean corpuscular volume (MCV)Ordered By: Ac Esquivel on 01-29-2023 MCV (RBC) [Entitic vol] 94.3 fL 81-99 [facility] Glucose Glucometer (BldC) [M ass/Vol]Ordered By: Ac Esquivel on 01-29-2023 Glucose [Mass/Vol] 122 mg/dL 74-106 [facility] Comment on above: MANAGEMENT OF PATIEN T CARE PER NURSING PROTOCOL Hematocrit Auto (Bld) [Volum e fraction]Ordered By: Ac Esquivel on 01-29-2023 Hematocrit (Bld) [Volume fraction] 38.2 % 37-47 [facility] - Chemistry and C hemistry - challengeOrdered By: Ac Esquivel on 01-29-2023 CO2 [Moles/Vol] 28.0 mmol/L 21.0-32.0 [facility] Urea nitrogen/Creatinine [Mass ratio] 33.3 mg/mg 10-20 [facility] - Hematology and Cell countsOrdered By: Ac Esquivel on 01-29-2023 Erythrocyte distribution width (RBC) [Entitic vol] 45.0 fL 35.1-43.9 [facility] Erythrocyte distribution width (RBC) [Ratio] 13.0 % 11.6-14.6 [facility] Immature granulocytes/100 WBC (Bld) 0.300 % 0.0-0.9 [facility] Comment on above: IG% - Immature Granu locytes (promyelocytes, myelocytes and metamyelocytes) > 1% indicates that a LEFT SHIFT is Present. MCH (RBC) [Entitic mass] 30.1 pg 27.0-32.0 [facility] Nucleated RBC/100 WBC (Bld) [Ratio] 0 % 0-5 [facility] MCHC Auto (RBC) [Mass/Vol]Or dered By: Ac Esquivel on 01-29-2023 MCHC (RBC) [Mass/Vol] 31.9 g/dL 32-36 [facility] No Panel InformationOrdered By: Ac Esquivel on 01-29-2023 Estimated Creatinine Clearance Calc 31.68 ml/min [facility] Estimated GFR (MDRD) Amer 60 mL/min >60 [facility] Comment on above: GFR Calc Estimated GFR (MDRD) Non-Af Amer 49 mL/min >60 [facility] Comment on above: Non- GFR Calc Platelets bldOrdered By: Young Esquivel on 01-29-2023 Platelets (Bld) [#/Vol] 336 10*3/uL 150-450 [facility] Serum or plasma calcium micheline urement (mass/volume)Ordered By: Ac Esquivel on 01-29-2023 Calcium [Mass/Vol] 9.7 mg/dL 8.5-10.1 [facility] Serum or plasma creatinine m easurement (mass/volume)Ordered By: Ac Esquivel on 01-29-2023 Creatinine [Mass/Vol] 1.14 mg/dL 0.55-1.02 [facility] Comment on above: The validity of the calculated GFR & GFRAA in patients over 70 years has not been determined. Clinical correlation is essential. Serum or plasma urea nitroge n measurement (mass/volume)Ordered By: Ac Esquivel on 01-29-2023 Urea nitrogen [Mass/Vol] 38 mg/dL 08-30 [facility] Thin prep Papanicolaou smear with manual screeningOrdered By: Ac Esquivel on 01-29-2023 Thin prep Papanicolaou smear with manual screening 7 - [facility] Vital Signs Date Time Vital Sign Value Performing Clinician Faci lity 01-29-2023 02:53-0500 Diastolic blood pressure 96 mm[Hg] [facility] 01-29-2023 02:53-0500 Heart rate 99 /min [facility] 01-29-2023 02:53-0500 Respiratory rate 12 /min [facility] 01-29-2023 02:53-0500 SaO2% (BldA) [Mass fraction] 95 % [facility] 01-29-2023 02:53-0500 Systolic blood pressure 131 mm[Hg] [facility] 01-29-2023 00:120500 Body height 154.94 cm [facility] 01-29-2023 00:120500 Body mass index (BMI) [Ratio] 38 kg/m2 [facility] 01-29-2023 00:120500 Body weight 91.2 kg [facility] 01-29-2023 00:09-0500 Body temperature 97.4 [degF] [facility] Encounters Encounter Date Encounter Type Care Provider Facility Start: 01-05-2024 End: 01-05-2024 ambulatory [facility] Facility:[facility] Start: 01-29-2023 End: 01-29-2023 Emergency department patient visit [facility]Emergency Department Work Phone: Procedures Date Procedure Procedure Detail Performing Clinician Start: 01-29-2023 CT of head without contrast Plan of Treatment Date Care Activity Detail Author Start: 01-29-2023 [facility] Patient Education ED, Migraine (Classical ) [facility] Work Phone: Patient referral [facility] Work Phone: Payers Date Payer Category Payer Medicare [id number] 2024 Self-pay [id number] Unknown [id number] Social History Date Type Detail Facility Start: [facility]23 [facility] Start: 08-30-2017 Cigarettes [facility] Start: 1945 Sex Assigned At Female [facility] Medical Equipment Procedure Code Equipment Code Equipment Origin al Text Equipment Identifier Dates 22.0 IOL LENS FDA Start: 08-03-2017 22.0D PRELOADED LENS FDA Star t: 08-31-2017 Mental Status Date Assessment Result Facility 01-29-2023 Cognitive function Voice/Name [facility] Work Phone: Evaluation note Note Date & Type Note Facility Evaluation note No assessment information availa ble [facility] Work Phone: Hospital Discharge instructions Note Date & Type Note Facility Hospital Discharge instructions Additional Instructions If visual disturbances persist please see your eye doctor early next week. As discussed you may notice an increase in your blood sugar over the next couple days due to the Decadron (steroid). You may continue to treat any residual headache with Motrin. [facility] Work Phone: Chief Complaint and Reason for Visit Chief Complaint CORDOVA, Visual disturban asad, general malaise Advance Directives No Advanced Directives Records Found Advance Directive Response Recorded Date/ Time Living Will Yes January 29 12:12am Power of [employer] Programmer Yes January 29, 2023 12:12am Name of Medical Power of [employer] Programmer Abby Day January 29, 2023 12:12am Summary Purpose Family History No Family History Records Found Additional Source Comments Care Teams (unrecognized sec tion and content) Team Status: Active Member Role Status Dates Dr. Flakito Lucia MD Family Provider Active Dr. Bing Pryor MD Primary Care Provider Active Team Status: Inactive Member Role Status Dates Dr. Bing Pryor MD Primary Care Provider Active Dr. Ac Esquivel DO Emergency Provider Active Goals (unrecognized section and content) Goals may be documented in a n alternate section INFORMATION SOURCE (unrecogn ized section and content) DATE CREATED AUTHOR 02/05/2024 [facility] FOR RECORDS PERTAINING TO PATIENTS WHO ARE OR HAVE BEEN ENROLLED IN A CHEMICAL DEPENDENCY/SUBSTANCEABUSE PROGRAM, SOME INFORMATION MAY BE OMITTED. This clinical summary was aggregated from multiple sources. Caution should be exercised in using it in the provision of clinical care. This summary normalizes information from multiple sources, and as a consequence, information in this document may materially change the coding, format and clinical context of patient data. In addition, data may be omitted in some cases. CLINICAL DECISIONS SHOULD BE BASED ON THE PRIMARY CLINICAL RECORDS. [employer] provides no warranty or guarantee of the accuracy or completeness of information in this document.
[2025-01-07 18:03] LABS: Creatinine, Urine (random) 21.80 mg/dL (28.00-217.00); Microalbumin,Random Urine 18.8 mg/L (<20 mg/L)
== END | disposition home or self-care (01) ==
LOC: BFHLAB 12:58
PROVIDERS: PCP Family Medicine; Visit Provider Family Medicine
DX: E11.9 Type 2 diabetes mellitus without complications (principal)
CPT/HCPCS: 80053; 80061; 82043; 82570; 85025